=== PATIENT | male | born 1995 | race Caucasian/White ===

== ENCOUNTER 2018-08-01 09:04 | Emergency (ER) | payer OTHER ==
[~2018-08-01] VITALS: Ht 172.7 cm; Wt 87.5 kg
[2018-08-01 09:11] VITALS: BP 146/75
--- NOTE | 2018-08-01 09:16 | NUR ---
Patient ambulated to bed 4. RN evaluating patient at bedside.
--- NOTE | 2018-08-01 09:17 | NUR ---
Dr. Miranda evaluating patient at bedside.
--- NOTE | 2018-08-01 09:18 | NUR ---
23 Y MALE BIB SELF C/O SORE THROAT AND FEVER X3 DAYS, POSITIVE COUGH WITH YELLOW MUCOUS, -N/V. LUNGS CLEAR BILATERALLY. +REDNESS IN THROAT. PATIENT STATES HE HAS BEEN TREATING WITH TYLENOL WITH NO RELIEF. VSS AT THIS TIME. AFEBRILE. BED IS DOWN, LOCKED, BED RAIL X1, ERMD TO SEE PT. PMH-DENIES
--- NOTE | 2018-08-01 09:25 | NUR ---
Dr. Gauthier evaluating patient at bedside.
--- NOTE | 2018-08-01 09:30 | NUR ---
STREP SWAB COLLECTED
[2018-08-01 10:20] VITALS: BP 141/73
--- NOTE | 2018-08-01 10:20 | NUR ---
Patient discharged with v/s stable. Written and verbal after care instructions given and explained. Patient verbalized understanding. Ambulatory with steady gait. All questions addressed prior to discharge. Advised to follow up with PMD. Pt instructed to continue use of tylenol and ibuprofen.
== END 2018-08-01 10:20 | disposition home or self-care (01) ==
LOC: MED 09:04
DX: J03.90 Acute tonsillitis, unspecified (principal); R03.0 Elevated blood-pressure reading, without diagnosis of hypertension
CPT/HCPCS: 87081; 99283

== ENCOUNTER 2018-11-22 06:25 | Emergency (ER) | payer OTHER ==
[~2018-11-22] VITALS: Ht 172.7 cm; Wt 100.7 kg
[2018-11-22 06:30] VITALS: BP 136/86
--- NOTE | 2018-11-22 06:32 | NUR ---
PT AMBULATED TO ER BED 4
--- NOTE | 2018-11-22 06:35 | NUR ---
23 Y/O M PRESENTS TO ER C/O DIZZINESS. PER PT HE HAS BEEN HAVING A FEVER ON AND OFF FOR THE LAST 3.5 WEEKS. PER PT HIS FEVER "WAS USUALLY AROUND 102." PT WAS TAKING TYLENOL AND MOTRIN TO CONTROL FEVER. CURRENT TEMPERATURE IS 98.5. PT HAS BEEN AFEBRILE FOR THE LAST 4-5 DAYS. PT HAS RUNNY NOSE AND OCCASIONAL PRODUCTIVE COUGH WITH YELLOW PHLEGM. PT C/O HE IS DIZZY AND HAD X2 VOMIT EPISODES YESTERDAY. DENIES NAUSEA AT THIS TIME. PT DENIES ANY PAIN, PAIN LEVEL 0/10. NKA. NO MED HX. SAFETY MEASURES IN PLACE. WAITING FOR ERMD TO EVALUATE PT.
--- NOTE | 2018-11-22 06:58 | NUR ---
Dr. Calles evaluating pt at bedside
[2018-11-22 07:01] VITALS: BP 136/86
--- NOTE | 2018-11-22 07:01 | NUR ---
Patient discharged by Dr. Calles with v/s stable. Written and verbal after care instructions given and explained. Patient verbalized understanding. Ambulatory with steady gait. All questions addressed prior to discharge. Advised to follow up with PMD.
== END 2018-11-22 07:01 | disposition home or self-care (01) ==
LOC: MED 06:25
DX: R42 Dizziness and giddiness (principal); R53.83 Other fatigue
CPT/HCPCS: 99281

== ENCOUNTER 2019-04-17 08:05 | Emergency (ER) | payer OTHER ==
[~2019-04-17] VITALS: Ht 172.7 cm; Wt 90.7 kg
[2019-04-17 08:08] VITALS: BP_SYST 144; BP_DIAS 104; BP_DIAS 74
--- NOTE | 2019-04-17 08:16 | NUR ---
Patient ambulated to bed 9. RN evaluating patient at bedside.
[2019-04-17] MEDS ORDERED: NACL 0.9% 1,000 ML IV SCH (08:18)
[2019-04-17] MEDS ORDERED: ONDANSETRON 4 MG/2 ML VIAL IVP ONE (08:20)
--- NOTE | 2019-04-17 08:27 | NUR ---
PT REFUSING IV START AND BLOOD DRAW. DR. SKINNER MADE AWARE
--- NOTE | 2019-04-17 08:50 | NUR ---
ERMD AT BEDSIDE EVALUATING PT
[2019-04-17 08:58] VITALS: BP 144/74
--- NOTE | 2019-04-17 08:59 | NUR ---
Patient discharged with v/s stable. Written and verbal after care instructions given and explained. Patient verbalized understanding. Ambulatory with steady gait. All questions addressed prior to discharge. Advised to follow up with PMD.
== END 2019-04-17 08:59 | disposition home or self-care (01) ==
LOC: MED 08:05
DX: R11.2 Nausea with vomiting, unspecified (principal); R42 Dizziness and giddiness
CPT/HCPCS: 81002; 99282

== ENCOUNTER 2019-05-13 00:50 | Emergency (ER) | payer OTHER ==
[~2019-05-13] VITALS: Ht 172.7 cm; Wt 84.8 kg
[2019-05-13 00:59] VITALS: BP 137/75
[2019-05-13] MEDS ORDERED: KETOROLAC 30 MG/ML VIAL IVP ONE (01:00)
[2019-05-13] MEDS ORDERED: NACL 0.9% 1,000 ML IV ONE (01:00)
[2019-05-13 01:31] LABS: BASOPHILS # (AUTO) 0.1 K/uL (0.00-0.22); BASOPHILS % (AUTO) 0.9 % (0.0-2.0); EOSINOPHILS # (AUTO) 0.2 K/uL (0-0.4); EOSINOPHILS % (AUTO) 2.4 % (0.0-4.0); HEMATOCRIT 47.5 % (36-52); HEMOGLOBIN 15.9 g/dL (12.0-18.0); LYMPHOCYTES # (AUTO) 4.4 K/uL (2.0-11.5); LYMPHOCYTES % (AUTO) 43.7 % (20.5-51.1); MEAN CORPUSCULAR HEMOGLOBIN 30 pg (27-31); MEAN CORPUSCULAR HGB CONC 33 g/dL (33-37); MEAN CORPUSCULAR VOLUME 88.7 fL (80-94); MONOCYTES # (AUTO) 0.8 K/uL (0.8-1.0); MONOCYTES % (AUTO) 7.7 % (1.7-9.3); NEUTROPHILS # (AUTO) 4.6 K/uL (1.8-7.7); NEUTROPHILS % (AUTO) 45.3 % (42.2-75.2); PLATELET COUNT (AUTO) 359 K/uL (140-450); RED BLOOD CELL COUNT(AUTO) 5.36 MIL/uL (4.20-6.10); RED CELL DISTRIBUTION WIDTH 12.6 % (11.6-13.7); WHITE BLOOD COUNT (AUTO) 10.1 K/uL (4.8-10.8)
[2019-05-13 01:47] LABS: ALBUMIN 3.9 g/dL (3.4-5.0); ANION GAP 13.8 (8-16); CARBON DIOXIDE 29.7 mmol/L (21-32); CREATININE 1.2 mg/dL (0.6-1.3); POTASSIUM 3.5 mmol/L (3.5-5.1); TOTAL BILIRUBIN 0.5 mg/dL (0.0-1.0)
[2019-05-13] MEDS ORDERED: MORPHINE SULFATE 4 MG/ML SYR IVP ONE (01:50)
[2019-05-13 02:17] LABS: APPEARANCE,URINE CLEAR (CLEAR); BILIRUBIN,URINE NEGATIVE (NEGATIVE); BLOOD, URINE 3+ (NEGATIVE); COLOR,URINE AMBER (YELLOW); LEUKOCYTE ESTERASE ,URINE NEGATIVE (NEGATIVE); NITRITE, URINE NEGATIVE (NEGATIVE); PH,URINE 5.5 (5.0-9.0); UGLUCOSE NEGATIVE (NEGATIVE)
[2019-05-13 02:27] LABS: RBC,URINE >100 /HPF (0-5)
[2019-05-13 02:28] LABS: WBC,URINE 0-5 /HPF (0-5)
[2019-05-13 02:30] LABS: HYALINE CASTS, URINE 0-10 /LPF (None Seen)
[2019-05-13 03:00] VITALS: BP 137/75
== END 2019-05-13 03:01 | disposition home or self-care (01) ==
LOC: MED 00:50
DX: N20.0 Calculus of kidney (principal); R03.0 Elevated blood-pressure reading, without diagnosis of hypertension
CPT/HCPCS: 36415; 74176; 80053; 81001; 82150; 83690; 85025; 96374; 96375; 99284; J1885; J2270; J7030

== ENCOUNTER 2021-06-24 01:29 | Emergency (ER) | payer OTHER ==
[~2021-06-24] VITALS: Ht 172.7 cm; Wt 103.9 kg
[2021-06-24 01:33] VITALS: BP 132/82
--- NOTE | 2021-06-24 01:33 | NUR ---
Dr. Pacheco at triage to exam patient.
[2021-06-24] MEDS ORDERED: MUPI2CRE22 TP (01:38)
[2021-06-24] MEDS ORDERED: CLOT14CR2 TP (01:38)
[2021-06-24 01:50] VITALS: BP 132/72
--- NOTE | 2021-06-24 01:50 | NUR ---
Patient discharged with v/s stable. Written and verbal after care instructions given and explained. Patient alert, oriented and verbalized understanding of instructions. Ambulatory with steady gait. All questions addressed prior to discharge. ID band removed. Patient advised to follow up with PMD. Rx of Mupirocin and Clotrimazole given. Patient educated on indication of medication including possible reaction and side effects. Opportunity to ask questions provided and answered.
== END 2021-06-24 01:50 | disposition home or self-care (01) ==
LOC: MED 01:29
DX: N47.6 Balanoposthitis (principal); Z79.899 Other long term (current) drug therapy
CPT/HCPCS: 99283

== ENCOUNTER 2021-07-12 02:35 | Emergency (ER) | payer OTHER ==
[~2021-07-12] VITALS: Ht 172.7 cm; Wt 103.0 kg
[~2021-07-12 02:35] MED LIST: CLOT14CR2 TP; MUPI2CRE22 TP
[2021-07-12 02:38] VITALS: BP 135/81
--- NOTE | 2021-07-12 02:40 | NUR ---
PT REFUSED MEDICATION
[2021-07-12] MEDS ORDERED: NAPR-54 PO (02:44)
[2021-07-12 02:45] VITALS: BP 135/81
[2021-07-12] MEDS ORDERED: KETOROLAC 60 MG/2 ML VIAL IM ONE (02:45)
--- NOTE | 2021-07-12 02:45 | NUR ---
DR. GÓMEZ EXAMINED IN TRIAGE
== END 2021-07-12 02:45 | disposition home or self-care (01) ==
LOC: MED 02:35
DX: S33.5XXA Sprain of ligaments of lumbar spine, initial encounter (principal); Z79.1 Long term (current) use of non-steroidal anti-inflammatories (NSAID); Z79.899 Other long term (current) drug therapy; Z79.2 Long term (current) use of antibiotics; X58.XXXA Exposure to other specified factors, initial encounter; Y92.89 Other specified places as the place of occurrence of the external cause; Y93.89 Activity, other specified; Y99.8 Other external cause status
CPT/HCPCS: 99282

== ENCOUNTER 2021-09-21 21:36 | Inpatient (IN) | payer OTHER ==
[~2021-09-21] VITALS: Ht 172.7 cm; Wt 108.1 kg
[~2021-09-21 21:36] MED LIST changes: +NAPR-54 PO
[2021-09-21 21:50] VITALS: BP 142/107
--- NOTE | 2021-09-21 22:35 | NUR ---
Patient arrived from home c/o right lower quadrant pain for 3 hours, progressively getting worse. Patient stated, "My mom said to come in due to the pain." Patient in bed 1, sitting semi fowlers position. Patient does not display s/s of distress.
--- NOTE | 2021-09-21 22:36 | NUR ---
Patient returned from CT scan.
[2021-09-21 22:39] LABS: BASOPHILS % (AUTO) 0.2 % (0.0-2.0); EOSINOPHILS # (AUTO) 0.1 K/uL (0-0.4); EOSINOPHILS % (AUTO) 0.4 % (0.0-4.0); HEMATOCRIT 45.4 % (36-52); HEMOGLOBIN 15.4 g/dL (12.0-18.0); LYMPHOCYTES # (AUTO) 2.5 K/uL (2.0-11.5); LYMPHOCYTES % (AUTO) 12.7 % (20.5-51.1); MEAN CORPUSCULAR HEMOGLOBIN 28 pg (27-31); MEAN CORPUSCULAR HGB CONC 34 g/dL (33-37); MEAN CORPUSCULAR VOLUME 83.4 fL (80-94); MONOCYTES # (AUTO) 1.3 K/uL (0.8-1.0); MONOCYTES % (AUTO) 6.5 % (1.7-9.3); NEUTROPHILS # (AUTO) 15.9 K/uL (1.8-7.7); NEUTROPHILS % (AUTO) 80.2 % (42.2-75.2); PLATELET COUNT (AUTO) 391 K/uL (140-450); RED BLOOD CELL COUNT(AUTO) 5.44 MIL/uL (4.20-6.10); RED CELL DISTRIBUTION WIDTH 13.6 % (11.6-13.7); WHITE BLOOD COUNT (AUTO) 19.8 K/uL (4.8-10.8)
[2021-09-21 22:51] LABS: ALBUMIN 4.2 g/dL (3.4-5.0); CARBON DIOXIDE 27.4 mmol/L (21-32); CREATININE 1.1 mg/dL (0.6-1.3); POTASSIUM 3.4 mmol/L (3.5-5.1); TOTAL BILIRUBIN 0.6 mg/dL (0.0-1.0)
--- NOTE | 2021-09-21 23:31 | NUR ---
Patient ambulated to bed 1.
[2021-09-21] MEDS ORDERED: NACL 0.9% 1,000 ML IV ONE (23:35)
[2021-09-21] MEDS ORDERED: MORPHINE SULFATE 4 MG/ML SYR IVP ONE (23:35)
[2021-09-21] MEDS ORDERED: PIPERACILLIN/TAZOBACTAM 3.375 GM in DEXTROSE 5% 50 ML IV ONE (23:45)
--- NOTE | 2021-09-21 23:50 | NUR ---
Patient verbalized "I want to hold off a little on the medication. I'm really nervous about medication going through the IV. I've never had surgery before. I'll let you know when I am ok to get the medication. My pain is a 2/10 right now."
--- NOTE | 2021-09-21 23:50 | NUR ---
Note cherone in ED - 09/22/21 at 0802 by [email or web address] Patient arrived from home c/o right lower quadrant pain for 3 hours, progressively getting worse. Patient stated, "My mom said to come in due to the pain." Patient in bed 1, sitting semi fowlers position. Patient does not display s/s of distress.
[2021-09-22] MEDS ORDERED: MORPHINE SULFATE 2 MG/ML SYR IVP PRN (00:35)
[2021-09-22] MEDS ORDERED: HYDROcodone/APAP 5/325 MG 1 TAB TAB PO PRN (00:35)
[2021-09-22] MEDS ORDERED: ACETAMINOPHEN 325 MG TAB PO PRN (00:35)
[2021-09-22] MEDS ORDERED: MORPHINE SULFATE 4 MG/ML SYR ONE (01:35)
--- NOTE | 2021-09-22 01:52 | NUR ---
Patient stated, "I am ready to get the medication now. I'm sorry, but my anxiety is really bad. My pain is gone up to 7/10." Medication given to patient. Addendum: 09/22/21 at 0153 by [id number] Patient stated, "I am ready to get the medication now. I'm sorry, but my anxiety is really bad. My pain is gone up to 7/10." Physician ordered medication given to patient.
[2021-09-22] MEDS ORDERED: PIPERACILLIN/TAZOBACTAM 3.375 GM VIAL IV ONE (02:36)
[2021-09-22] MEDS: LACTATED RINGERS 1,000 ML IV SCH ×2 (02:55→13:55)
--- NOTE | 2021-09-22 07:18 | NUR ---
Patient verbally informed that his surgery is set to be done at 1200 hrs. Patient verbalized understanding, no further questions.
--- NOTE | 2021-09-22 07:55 | NUR ---
REPORT RECEIVED FROM ABRAM FLOWERS. TRANSFER OF CARE AT THIS TIME
--- NOTE | 2021-09-22 07:55 | NUR ---
Change of shift report given to AM shift nurse Christine. AM shift nurse Christine verbalized understanding of report, no further questions.
--- NOTE | 2021-09-22 08:12 | NUR ---
Patient will be admitted to care of [facility]. Admited to [facility]. Will go to [email or web address] . Belongings list completed. Report to LOVE RODRIGUEZ. ALL QUESTIONS ANSWERED
[2021-09-22 08:15] VITALS: BP 128/76
--- NOTE | 2021-09-22 08:18 | NUR ---
AT 815 PATIENT WHEELED ON WHEEL CHAIR BY LIONEL GALICIA FROM ER GAVE BED SIDE REPORT FOR CONTINUITY OF CARE. PATIENT ALERT AND ORIENTED ABLE TO RESPONDS VERBALLY. RESPIRATION EVEN AND NOT LABORED ON ROOM AIR. IV SITE ON LEFT FORE ARM CARLOS 18 RUNNING LR AT 75 CC/HOUR. NPO FOR SURGERY SCHEDULE AT 12NOON. ORIENTED TO ROOM , CALL FLIGHT, BATHROOM, VISITING AND TV. CALL LIGHT WITH IN EASY REACH.
--- NOTE | 2021-09-22 08:26 | NUR ---
The patient's care was reviewed and supervised by Nidia Solomon, RN, RN.
--- NOTE | 2021-09-22 09:00 | NUR ---
PATIENT HAS BEEN SCREENED AND CATEGORIZED LOW NUTRITION RISK. PATIENT WILL BE SEEN WITHIN 7 DAYS OF ADMISSION. 09/28/[address]
[2021-09-22] MEDS: PIPERACILLIN/TAZOBACTAM 3.375 GM in DEXTROSE 5% 50 ML IV SCH ×2 (10:05→17:23)
--- NOTE | 2021-09-22 10:05 | NUR ---
LIONEL POLLOCK IV ANTIBIOTIC THERAPY.
--- NOTE | 2021-09-22 10:35 | NUR ---
PATIENT ALERT ABLE TO MAKE NEEDS KNOWN NO ADVERSE REACTION NOTED ON ANTIBIOTIC THERAPY. PATIENT TOOK BY 2 RN OR STAFF WHEELED HIS BED FOR SURGERY. PATIENT ON STABLE CONDITION.
[2021-09-22] MEDS ORDERED: ONDANSETRON 4 MG/2 ML VIAL IVP PRN (10:45)
[2021-09-22] MEDS ORDERED: HYDROmorphone 1 MG/ML AMP IVP PRN (10:45)
[2021-09-22] MEDS ORDERED: LIDOCAINE 1% 500 MG/50 ML VIAL ONE (10:49)
[2021-09-22] MEDS ORDERED: BUPIVACAINE-MPF 0.5% 30 ML VIAL INJ ONE (10:49)
[2021-09-22] MEDS ORDERED: ONDANSETRON 4 MG/2 ML VIAL ONE (10:54)
[2021-09-22] MEDS ORDERED: SUCCINYLCHOLINE CHLORIDE 200 MG/10 ML VIAL IVP ONE (10:54)
[2021-09-22] MEDS ORDERED: KETOROLAC 30 MG/ML VIAL ONE (10:54)
[2021-09-22] MEDS ORDERED: DEXAMETHASONE 4 MG/ML VIAL ONE (10:54)
[2021-09-22] MEDS ORDERED: PROPOFOL 200 MG/20 ML VIAL IV ONE (10:54)
[2021-09-22] MEDS ORDERED: ROCURONIUM 50 MG/5 ML VIAL IV ONE ×2 (10:54→12:43)
[2021-09-22] MEDS ORDERED: MIDAZOLAM 2 MG/2 ML VIAL ONE (11:14)
[2021-09-22] MEDS ORDERED: fentaNYL citrate 0.05 MG/ML VIAL ONE (11:21)
[2021-09-22] MEDS ORDERED: BUPIVACAINE MPF 0.25% 10 ML VIAL INJ ONE (11:26)
[2021-09-22] MEDS ORDERED: HYDROmorphone PFS 2 MG/ML SYR ONE (11:46)
[2021-09-22] MEDS ORDERED: ceFAZolin 1,000 MG VIAL ONE ×2 (11:49)
--- NOTE | 2021-09-22 12:00 | NUR ---
DISCHARGE PLANNING SW ATTEMPTED TO MEET WITH PATIENT AT BEDSIDE, HOWEVER, PATIENT WAS TAKEN TO SURGERY. SW TO FOLLOW UP
[2021-09-22] MEDS ORDERED: SUGAMMADEX SODIUM 200 MG/2 ML VIAL IV ONE (12:43)
[2021-09-22] MEDS ORDERED: HYDROmorphone 1 MG/ML AMP IM/IV PRN (13:10)
--- NOTE | 2021-09-22 13:45 | NUR ---
PATIENT WHEELED BY 2 OR STAFF AND GAVE BED SIDE REPORT FOR S/P LAPAROSCOPIC APPENDECTOMY. PATIENT ASLEEP BUT ABLE TO WAKE UP GROGGY AND COMPLAIN OF ABDOMINAL PAIN. MOTHER AT BED SIDE. PATIENT O2 SAT AT ROOM AIR 88% APPLIED O2 AT 2L/MIN VIA NASAL CAMULA OE Addendum: 09/22/21 at 1351 by Katie Samano LVN ACCIDENTALLY ENTERED NOT DONE YET.
--- NOTE | 2021-09-22 13:51 | NUR ---
PATIENT WHEELED BY 2 OR STAFF AND GAVE BED SIDE REPORT FOR S/P LAPAROSCOPIC APPENDECTOMY. PATIENT ASLEEP BUT ABLE TO WAKE UP GROGGY AND COMPLAIN OF ABDOMINAL PAIN. MOTHER AT BED SIDE. PATIENT O2 SAT AT ROOM AIR 88% APPLIED O2 AT 2L/MIN VIA NASAL CANULA O2 SAT AT 94%. CALL LIGHT WITH IN EASY REACH. VITAL SIGN STABLE. NO ACTIVE BLEEDING NOTED.
[2021-09-22 16:00] VITALS: BP 107/63
--- NOTE | 2021-09-22 16:09 | NUR ---
DC PLANNING: THE PATIENT ADMITTED WITH C/O WORSENING ABDOMINAL PAIN WITH DECREASED APPETITE X 1 DAY. WBC'S 19.8, CT ABD SHOWS FATTY LIVER AND EARLY ACUTE APPENDICITIS. STARTED ON ZOSYN AND IVF'S, SURGERY CONSULT ORDERED, TO OR TODAY FOR LAP MICHELLEY. ORDERS FOR PAIN MANAGEMENT AND CLEAR LIQUID DIET WITH ACTIVITY TOLERATED POST-OP. PATIENT WILL DC HOME WHEN CLINICALLY STABLE, CM WILL FOLLOW.
--- NOTE | 2021-09-22 16:51 | NUR ---
PATIENT MOTHER AT BED SIDE. PATIENT ON STABLE CONDITION ASSISTED TO TOILET. CALL LIGHT WITH IN EASY REACH.
--- NOTE | 2021-09-22 17:25 | NUR ---
RN HANG IV ANTIBIOTIC. PATIENT SOUND ASLEEP WITH MOTHER AT BEDSIDE.
--- NOTE | 2021-09-22 18:58 | NUR ---
PATIENT ASLEEP BUT ABLE TO WAKE UP NO DISTRESS NOTED. NO ADVERSE REACTION NOTED ON IV ANTIBIOTIC. PATIENT SURGICAL SITE DRESSING INTACT NO BLEEDING OR S/S OF BLEEDING OR INFECTION.
--- NOTE | 2021-09-22 19:23 | NUR ---
GAVE REPORT TO CASING MACHINE OPERATOR NURSE FOR CONTINUITY OF CARE.
[2021-09-23] VITALS: BP 105/61
[2021-09-23] MEDS: PIPERACILLIN/TAZOBACTAM 3.375 GM in DEXTROSE 5% 50 ML IV SCH ×2 (00:16→08:53)
[2021-09-23] MEDS: LACTATED RINGERS 1,000 ML IV SCH (02:56)
[2021-09-23 05:49] LABS: BASOPHILS % (AUTO) 0.1 % (0.0-2.0); HEMATOCRIT 40.9 % (36-52); HEMOGLOBIN 13.8 g/dL (12.0-18.0); LYMPHOCYTES % (AUTO) 13.1 % (20.5-51.1); MEAN CORPUSCULAR HEMOGLOBIN 28 pg (27-31); MEAN CORPUSCULAR HGB CONC 34 g/dL (33-37); MEAN CORPUSCULAR VOLUME 83.6 fL (80-94); MONOCYTES # (AUTO) 1.4 K/uL (0.8-1.0); MONOCYTES % (AUTO) 9.3 % (1.7-9.3); NEUTROPHILS # (AUTO) 11.9 K/uL (1.8-7.7); NEUTROPHILS % (AUTO) 77.5 % (42.2-75.2); PLATELET COUNT (AUTO) 351 K/uL (140-450); RED CELL DISTRIBUTION WIDTH 13.5 % (11.6-13.7); WHITE BLOOD COUNT (AUTO) 15.3 K/uL (4.8-10.8)
[2021-09-23 06:05] LABS: ANION GAP 14.5 (8-16); CARBON DIOXIDE 25.2 mmol/L (21-32); CREATININE 0.8 mg/dL (0.6-1.3); POTASSIUM 3.7 mmol/L (3.5-5.1)
--- NOTE | 2021-09-23 07:29 | NUR ---
RECEIVED ENDORSEMENT FROM PROTECTIVE SERVICES CASE WORKER NURSE FOR CONTINUITY OF CARE. PATIENT ASLEEP BUT ABLE TO WAKE UP WHEN CALLED DENIES ANY DISCOMFORT. RESPIRATION EVEN AND NOT LABORED NO SHORTNESS OF BREATH ON ROOM AIR. IV SITE ON LEFT AC CARLOS 18 RUNNING LR AT 75 CC/HOUR. NO SIGN AND SYMPTOMS OF INFILTRATE OR SWELLING. CALL LIGHT WITH IN EASY REACH. PATIENT VERBALIZED THAT HE ALREADY PASS GAS.
--- NOTE | 2021-09-23 07:47 | NUR ---
PATIENT REQUESTING FOR DIET TO BE ADVANCE SEND MESSAGE TO DR. MOHAMUD SURGEON AND HE SAID OKAY TO ADVANCE AND OKAY FOR PCP TO DISCHARGE PATIENT.
[2021-09-23 08:00] VITALS: BP 146/70
--- NOTE | 2021-09-23 09:45 | NUR ---
PATIENT IV ANTIBIOTIC THAT RN HANG DONE NO ADVERSE REACTION NOTED. PATIENT EATING AND DRINKING WELL NO NAUSEA OR VOMITING. SURGICAL SITE NO DRAINAGE OR BLEEDING NOTED. MOTHER AT BED SIDE.
--- NOTE | 2021-09-23 11:30 | NUR ---
DC PLANNING SW MET WITH PATIENT AND MOTHER AT [facility] TO GATHER COLLATERAL INFORMATION. PT REPORTS RESIDING AT THE ADDRESS ON FILE WITH MOTHER. PT IDENTIFIED MOTHER, HEBER LARRY ([phone]) EMERGENCY CONTACT AND MDM. PATIENT DENIED AD IN PLACE AND ACCEPTED AD OFFERED BY SW. PT REPORTS LAST VISIT WITH PCP 5 MONTHS AGO. SW SPOKE WITH PATIENT ON THE IMPORTANCE OF FOLLOW UP CARE, PATIENT WAS RECEPTIVE AND PROVIDED SW WITH PERMISSION TO SCHEDULE FOLLOW UP APPT. PT DENIES TAKING MEDICATION AND REPORTS NO BARRIERS IN ACCESSING NEEDED MEDICATIONS. PATIENT DENIES FOOD INSECURITY AND REPORTS ADEQUATE FAMILY SUPPORT. PT IS INDEPENDENT IN ALL ACTIVITIES. PT REPORTS DC PLAN IS TO RETURN HOME WITH MOTHER PROVIDING TRANSPORTATION AND AIDING IN CARE, IF NEEDED. SW INQUIRED ON ADDITIONAL RESOURCES NEEDED AT THIS TIME. PATIENT DECLINED. SW WILL SCHEDULE FOLLOW UP APPT WITH PCP ONCE CLEARED FOR DC. Addendum: 09/23/21 at 1527 by Theo PANCHAL SARAH OUTREACHED TO PATIENTS PCP OFFICE AT [phone]. SARAH SPOKE WITH KVNG RIGGINS DR OFFICE, APPT SCHEDULED FOR 09/24/21 AT 10:0 AM WITH JACKLYN ALBERTS, AT [address] [facility]. PATIENT WAS PROVIDED WITH APPT DETAILS THAT INCLUDED; DATE, TIME, ADDRESS, PHONE NUMBER AND
--- NOTE | 2021-09-23 12:00 | NUR ---
PATIENT ATE LUNCH TOLERATED WELL. DENIES PAIN OR ANY DISCOMFORT. NO ADVERSE REACTION NOTED ON ANTIBIOTIC THERAPY FOR PROPHYLAXIS NO ADVERSE REACTION NOTED. ABDOMINAL SURGICAL 3 SITE WITH STAPLE NO SIGN AND SYMPTOMS OF INFECTION OR BLEEDING.
[2021-09-23] MEDS ORDERED: CIPR500T4 PO (12:46)
[2021-09-23] MEDS ORDERED: ACET-9525 PO (12:46)
[2021-09-23] MEDS ORDERED: DOCU-299 PO (13:11)
[2021-09-23 13:26] VITALS: BP 111/61
--- NOTE | 2021-09-23 14:15 | NUR ---
PATIENT ALERT ABLE TO MAKE NEEDS KNOWN RESPIRATION EVEN AND NOT LABORED NO SHORTNESS OF BREATH. NAME BAND REMOVED, IV REMOVED WITH CATHETER INTACT. DISCHARGE PACKET GIVEN WITH INSTRUCTION PATIENT VERBALIZED UNDERSTANDING. PATIENT WHEELED TO THEIR PRIVATE VEHICLE WITH ALL BELONG.
== END 2021-09-23 14:10 | disposition home or self-care (01) | DRG 710 ==
LOC: MED 21:36 → MMU 09-22 00:37 → MTU 09-22 05:17
PROVIDERS: ADMIT Hospitalist; ATTEND Hospitalist
PROC: 0DTJ4ZZ Resection of Appendix, Percutaneous Endoscopic Approach (ICD-10-PCS; principal; 2021-09-22 12:00)
DX: A41.9 Sepsis, unspecified organism (principal); K35.80 Unspecified acute appendicitis; F32.A Depression, unspecified; F41.9 Anxiety disorder, unspecified; Z20.822 Contact with and (suspected) exposure to COVID-19; F90.9 Attention-deficit hyperactivity disorder, unspecified type; Z79.899 Other long term (current) drug therapy
CPT/HCPCS: 36415; 80048; 80053; 82374; 83605; 83690; 85025; 85610; 85730; 86886; 86900; 86901; 87040; 87081; 88304; 96365; 96375; 99291; J0330; J0690; J1100; J1170; J1885; J2001; J2250; J2270; J2405; J2543; J2704; J3010; J3490; J7030; J7060

== ENCOUNTER 2022-01-17 08:19 | Emergency (ER) | payer OTHER ==
[~2022-01-17] VITALS: Ht 172.7 cm; Wt 108.4 kg
[~2022-01-17 08:19] MED LIST changes: +ACET-9525 PO; +CIPR500T4 PO; -CLOT14CR2 TP; +DOCU-299 PO; -MUPI2CRE22 TP; -NAPR-54 PO
[2022-01-17 08:24] VITALS: BP 129/80
--- NOTE | 2022-01-17 09:00 | NUR ---
26/F WALKED IN C/O RIGHT WRIST AND ARM PAIN ONSET 1 DAY S/P TRIPPING AND FALLING ON A BOX. PT REPOTS LANDING ON HIS RIGHT HAND. DENIES HEAD TRAUMA OR KO. PT REPORTS MILD TINGLING TO THE ARM. AAO4, AMBULATORY, VITALS STABLE, RANGE OF MOTION INTACT. NKA PMH: DENIES
--- NOTE | 2022-01-17 09:03 | NUR ---
PT TAKEN TO XRAY VIA WC
--- NOTE | 2022-01-17 09:17 | NUR ---
PT BACK FROM XR
[2022-01-17] MEDS ORDERED: ACET-10509 PO (09:46)
== END 2022-01-17 09:55 | disposition home or self-care (01) ==
LOC: MED 08:19
DX: M25.531 Pain in right wrist (principal)
CPT/HCPCS: 73110; 73130; 99284

== ENCOUNTER 2023-07-22 13:41 | Emergency (ER) | payer OTHER ==
[~2023-07-22] VITALS: Ht 172.7 cm; Wt 116.1 kg
[~2023-07-22 13:41] MED LIST changes: +ACET-10509 PO
[2023-07-22 13:46] VITALS: BP 141/98; PULSE 89; RESP 18; TEMP 97.3; O2SAT 97
[2023-07-22] MEDS ORDERED: ZOLP5TAB1 PO (14:06)
[2023-07-22] MEDS ORDERED: LORA1T1237 PO (14:06)
[2023-07-22 14:12] VITALS: BP 135/82; PULSE 78; RESP 16; TEMP 98; O2SAT 99
== END 2023-07-22 14:12 | disposition home or self-care (01) ==
LOC: MED 13:41
DX: J30.2 Other seasonal allergic rhinitis (principal); G47.00 Insomnia, unspecified; Z79.899 Other long term (current) drug therapy
CPT/HCPCS: 99283

== ENCOUNTER 2023-08-26 03:08 | Emergency (ER) | payer OTHER ==
[~2023-08-26] VITALS: Ht 172.7 cm; Wt 110.7 kg
[~2023-08-26 03:08] MED LIST changes: +LORA1T1237 PO; +ZOLP5TAB1 PO
[2023-08-26 03:13] VITALS: BP 122/68; PULSE 111; RESP 20; TEMP 97.9; O2SAT 96
[2023-08-26] MEDS: ONDANSETRON 4 MG ODT PO ONE (04:03)
[2023-08-26] MEDS: GLYCOPYRROLATE 1 MG TAB PO ONE (04:04)
[2023-08-26] MEDS ORDERED: ROB1 PO (04:12)
[2023-08-26] MEDS ORDERED: ONDA-188 SL (04:12)
[2023-08-26 04:22] VITALS: BP 146/82; PULSE 110; RESP 20; TEMP 97.9; O2SAT 96
== END 2023-08-26 04:22 | disposition home or self-care (01) ==
LOC: MED 03:08
DX: K11.7 Disturbances of salivary secretion (principal); R11.0 Nausea; Z90.49 Acquired absence of other specified parts of digestive tract; Z90.89 Acquired absence of other organs; Z79.1 Long term (current) use of non-steroidal anti-inflammatories (NSAID); Z79.2 Long term (current) use of antibiotics; Z79.899 Other long term (current) drug therapy
CPT/HCPCS: 99283; Q0162

== ENCOUNTER 2023-08-27 18:14 | Emergency (ER) | payer OTHER ==
[~2023-08-27 18:14] MED LIST changes: +ONDA-188 SL; +ROB1 PO
[2023-08-27 18:30] VITALS: BP 155/93; PULSE 97; RESP 16; TEMP 103; O2SAT 100
== END 2023-08-27 19:15 | disposition left against medical advice (07) ==
LOC: MED 18:14
DX: R06.02 Shortness of breath (principal); Z53.21 Procedure and treatment not carried out due to patient leaving prior to being seen by health care provider